=== PATIENT | male | born 1950 | race Caucasian/White ===

== ENCOUNTER → 2016-10-29 | Outpatient (CLI) | payer MEDICARE ==
[~2016-10-29] MED LIST: ASPI-515 PO; CELE200C PO; PANT40TA3 PO; PRAV20TA2 PO; SULF1TAB24 PO
== END | disposition home or self-care (01) ==
LOC: CFH 07:05
PROVIDERS: ATTEND Family Medicine
DX: R10.11 Right upper quadrant pain (principal); N28.1 Cyst of kidney, acquired
CPT/HCPCS: 76700